=== PATIENT | male | born 1995 | race Caucasian/White ===

== ENCOUNTER 2017-12-13 19:12 | Emergency (ER) | payer MEDICAID ==
[~2017-12-13] VITALS: Ht 180.3 cm; Wt 94.7 kg
[2017-12-13 19:13] VITALS: BP 170/94
[2017-12-13] MEDS ORDERED: KETOROLAC 30 MG/1 ML ONE (19:49)
[2017-12-13] MEDS ORDERED: KETOROLAC 30 MG/1 ML IM ONE (20:00)
== END 2017-12-13 20:33 | disposition home or self-care (01) ==
LOC: ED 19:40
DX: S86.212A Strain of muscle(s) and tendon(s) of anterior muscle group at lower leg level, left leg, initial encounter (principal); F17.200 Nicotine dependence, unspecified, uncomplicated; X58.XXXA Exposure to other specified factors, initial encounter; Y93.89 Activity, other specified; Y92.89 Other specified places as the place of occurrence of the external cause; Y99.8 Other external cause status
CPT/HCPCS: 96372; 99283; J1885

== ENCOUNTER 2018-01-20 20:22 | Emergency (ER) | payer MEDICAID ==
[~2018-01-20] VITALS: Ht 180.3 cm; Wt 96.4 kg
[2018-01-20 20:40] VITALS: BP 150/82
== END 2018-01-20 23:17 | disposition home or self-care (01) ==
LOC: ED 23:11
DX: G89.29 Other chronic pain (principal); M79.662 Pain in left lower leg; M79.661 Pain in right lower leg
CPT/HCPCS: 93970; 99284

== ENCOUNTER 2018-03-16 19:50 | Emergency (ER) | payer MEDICAID ==
[~2018-03-16] VITALS: Ht 180.3 cm; Wt 97.0 kg
[2018-03-16 20:35] LABS: BASOPHILS # (AUTO) 0.06 x10^3/uL (0-0.1); BASOPHILS % (AUTO) 1 % (0-1); EOSINOPHILS % (AUTO) 5 % (1-7); LYMPHOCYTES # (AUTO) 2.07 x10^3/uL (1-3.4); LYMPHOCYTES % (AUTO) 32 % (22-44); MD NO; MEAN CORPUSCULAR HEMOGLOBIN 31.7 pg (27.5-34.5); MEAN CORPUSCULAR HGB CONC 35.4 g/dL (33.2-36.2); MEAN CORPUSCULAR VOLUME 89.6 fL (81-97); MEAN PLATELET VOLUME 8.9 fL (7.4-10.4); MONOCYTES # (AUTO) 0.39 x10^3/uL (0.2-0.8); MONOCYTES % (AUTO) 6 % (2-9); NEUTROPHILS # (AUTO) 3.62 x10^3/uL (1.8-6.8); NEUTROPHILS % (AUTO) 56 % (42-75); PLATELET COUNT 177 x10^3/uL (130-400); RED BLOOD COUNT 4.88 x10^6/uL (4.38-5.82); RED CELL DISTRIBUTION WIDTH 12.5 % (9.4-14.8)
[2018-03-16 20:44] LABS: ALBUMIN 3.7 g/dL (3.4-5.0); ANION GAP 8 mmol/L (5-15); CALCIUM 8.5 mg/dL (8.5-10.1); CHLORIDE 107 mmol/L (98-107); CREATININE 1.02 mg/dL (0.7-1.3)
[2018-03-16] MEDS ORDERED: KETOROLAC 30 MG/1 ML ONE (20:49)
[2018-03-16] MEDS ORDERED: KETOROLAC 30 MG/1 ML IM ONE (21:00)
[2018-03-16 21:15] VITALS: BP 122/77
== END 2018-03-16 21:25 | disposition home or self-care (01) ==
LOC: ED 21:18
DX: R07.89 Other chest pain (principal)
CPT/HCPCS: 36415; 71045; 80048; 82040; 85025; 93005; 96372; 99285; J1885

== ENCOUNTER 2021-02-16 16:40 | Emergency (ER) | payer MEDICAID ==
[~2021-02-16] VITALS: Ht 180.3 cm; Wt 110.8 kg
[2021-02-16 16:54] VITALS: BP 125/73
== END 2021-02-16 19:38 | disposition home or self-care (01) ==
LOC: ED 17:20
DX: S93.432A Sprain of tibiofibular ligament of left ankle, initial encounter (principal); W18.30XA Fall on same level, unspecified, initial encounter; Y93.89 Activity, other specified; Y92.830 Public park as the place of occurrence of the external cause; Y99.8 Other external cause status
CPT/HCPCS: 99283